=== PATIENT | female | born 1975 | race Caucasian/White ===

== ENCOUNTER 2022-04-05 07:56 | Day surgery (SDC) | payer BC ==
[~2022-04-05] VITALS: Ht 167.6 cm; Wt 75.1 kg
[2022-04-05 08:17] VITALS: BP 129/96; PULSE 67; TEMP 97.7
[2022-04-05] MEDS ORDERED: LEXAPRO 10MG10 MG PO (08:20)
[2022-04-05] MEDS ORDERED: HYZAAR 50-12.1 UDTAB PO (08:20)
[2022-04-05] MEDS ORDERED: PRIL40 PO (08:20)
[2022-04-05] MEDS ORDERED: ESTRACE 1MG1 MG/TAB PO (08:21)
[2022-04-05] MEDS ORDERED: TIROSINT137 MC1 PO (08:21)
[2022-04-05] MEDS ORDERED: SINGULAIR 110 MG/TAB PO (08:21)
--- NOTE | 2022-04-05 08:51 | NUR ---
The patient reported to the nurse that she had a history of "fainting from IVs" on admission. She started to feel hot and dizzy after her IV was placed. Her chair was reclined and she was given some cool wash cloths. She reported feeling nauseated and was given an emesis bag. The patient never had any emesis come up and was able to get the dizzy feeling under control with the help of her cool wash cloths and deep breaths.
[2022-04-05 09:40] VITALS: BP 103/65; PULSE 76; TEMP 97.1
--- NOTE | 2022-04-05 09:40 | NUR ---
PT arrived from procedure, drowsy but oriented. PT was assisted sitting upright in bed, follow by ambulating to chair from cart using an unsteady gait. PT oriented to room and call dejesus, within reach. Monitors applied and VSS. PT provided ice water per request. Warm blankets applied. Will monitor per intervals.
--- NOTE | 2022-04-05 09:50 | NUR ---
is speaking with the PT.
[2022-04-05 09:55] VITALS: BP 108/85; PULSE 62
--- NOTE | 2022-04-05 09:55 | NUR ---
PT served buttered toast. VSS. Call dejesus remains within reach.
[2022-04-05 10:10] VITALS: BP 126/79; PULSE 59
--- NOTE | 2022-04-05 10:10 | NUR ---
VSS. PT has finished her toast and continues to drink water. Coffee served per request. PT continues to deny nausea and expressed desire to be discharged. IV discontinued. Catheter tip intact. Pressure bandage applied. NO rednes or swelling noted. DC instructions then reveiwed, along with educational material. PT verbalized understanding and signed the related paperwork. Questions answered. PT denied needing assistance changing into personal clothes. Call dejesus remains within reach if needed.
--- NOTE | 2022-04-05 10:25 | NUR ---
PT dismissed from endo via wheelchair to the PT entrence by Monserrat MZEA. PT has DC packet in hand and personal belongins and was tranferred into the care of her , who is driving private car.
== END 2022-04-05 10:25 | disposition home or self-care (01) ==
LOC: SDCO 07:56
DX: Z12.11 Encounter for screening for malignant neoplasm of colon (principal); D12.3 Benign neoplasm of transverse colon; D12.5 Benign neoplasm of sigmoid colon; K31.89 Other diseases of stomach and duodenum; R05.9 Cough, unspecified; K62.89 Other specified diseases of anus and rectum; K21.9 Gastro-esophageal reflux disease without esophagitis; R06.00 Dyspnea, unspecified; H92.02 Otalgia, left ear; Z79.899 Other long term (current) drug therapy; Z85.850 Personal history of malignant neoplasm of thyroid; Z79.890 Hormone replacement therapy; Z90.89 Acquired absence of other organs; Z80.0 Family history of malignant neoplasm of digestive organs
CPT/HCPCS: J2704; J7120